=== PATIENT | female | born 1990 | race Caucasian/White ===

== ENCOUNTER 2018-07-10 18:51 | Emergency (ER) | payer MEDICAID, OTHER ==
[~2018-07-10] VITALS: Ht 167.6 cm; Wt 133.7 kg
[~2018-07-10 18:51] MED LIST: IBUP-1984 PO; NORE1PAT7 TP
[2018-07-10 18:55] VITALS: BP 146/90
[2018-07-10 19:41] LABS: BASOPHILS % (AUTO) 0.3 % (0-1); EOSINOPHILS # (AUTO) 0.3 X10'3 (0-0.9); EOSINOPHILS % (AUTO) 2.7 % (0-6); HEMATOCRIT 43.1 % (35.0-45.0); HEMOGLOBIN 14.4 g/dl (12.0-16.0); LYMPHOCYTES # (AUTO) 2.7 X10'3 (1.1-4.8); LYMPHOCYTES % (AUTO) 24.5 % (21-51); MEAN CORPUSCULAR HEMOGLOBIN 29.2 PG (27.0-31.0); MEAN CORPUSCULAR HGB CONC 33.4 % (33.0-36.5); MEAN CORPUSCULAR VOLUME 87.5 FL (78-98); MEAN PLATELET VOLUME 9.2 FL (7.4-10.4); MONOCYTES # (AUTO) 0.5 X10'3 (0-0.9); MONOCYTES % (AUTO) 4.4 % (2-12); NEUTROPHILS # (AUTO) 7.5 X10'3 (1.8-7.7); NEUTROPHILS % (AUTO) 68.1 % (42-75); PLATELET COUNT 306 X10'3 (140-440); RED BLOOD COUNT 4.92 X10'6 (4.20-5.60); RED CELL DISTRIBUTION WIDTH 15.6 % (11.5-14.5); WHITE BLOOD COUNT 11.1 X10'3 (4.5-11.0)
[2018-07-10 19:50] LABS: PARTIAL THROMBOPLASTIN TIME 30 SECONDS (22-32)
[2018-07-10 19:51] LABS: ALANINE AMINOTRANSFERASE 35 U/L (12-78); ALBUMIN 3.5 G/DL (3.4-5.0); ALBUMIN/GLOBULIN RATIO 0.8 (1.1-1.5); ALKALINE PHOSPHATASE 106 IU/L (46-116); ANION GAP 10 (8-16); ASPARTATE AMINO TRANSFERASE 20 U/L (10-37); BILIRUBIN,TOTAL 0.3 MG/DL (0.1-1.0); BLOOD UREA NITROGEN 13 MG/DL (7-18); BUN/CREATININE RATIO 15.1 (6.6-38.0); CALCIUM 8.7 MG/DL (8.5-10.1); CHLORIDE 103 MMOL/L (99-107); CREATININE 0.86 MG/DL (0.40-0.90); GLUCOSE 145 MG/DL (70-104); MAGNESIUM 1.9 MG/DL (1.5-2.4); POTASSIUM 3.9 MMOL/L (3.5-5.1); SODIUM 139 MMOL/L (135-145); TOTAL CARBON DIOXIDE 25.8 MMOL/L (24-32); TOTAL PROTEIN 7.9 G/DL (6.4-8.2); eGFR 79 ML/MIN
[2018-07-10 20:01] LABS: HCG SERUM QL NEGATIVE
[2018-07-10 21:16] LABS: URINE HCG NEGATIVE (NEG)
[2018-07-10 21:29] LABS: CLARITY,URINE CLEAR (Clear); COLOR,URINE YELLOW (Yellow); GLUCOSE, URINE NEGATIVE (Neg); KETONES,URINE NEGATIVE (Neg); LEUKOCYTE ESTERASE ,URINE NEGATIVE (Neg); NITRITES, URINE NEGATIVE (Neg); OCCULT BLOOD,URINE NEGATIVE (Neg); PH,URINE 5.5 (4.8-8.0); PROTEIN,URINE NEGATIVE (Neg); UROBILINOGEN,URINE 0.2 E.U/dL (0.2-1.0)
[2018-07-10 21:35] LABS: UA COLLECTION TYPE CLN CATCH MIDSTREAM
[2018-07-10] MEDS ORDERED: ipratropium/albuterol 3ml nebule NEB STA (21:59)
[2018-07-10] MEDS ORDERED: methylPREDNISolone sod succ 125mg/2ml vial IM ONE (22:00)
[2018-07-10] MEDS ORDERED: CefTRIAXone 1000mg IM Kit (w/lidocaine diluent) IM ONE (22:00)
[2018-07-11] MEDS ORDERED: ALBU8HFA INH (00:04)
[2018-07-11] MEDS ORDERED: AZIT-63 PO (00:04)
[2018-07-11] MEDS ORDERED: PRED20TA PO (00:04)
== END 2018-07-11 00:28 | disposition home or self-care (01) ==
LOC: ER 18:51
DX: J40 Bronchitis, not specified as acute or chronic (principal); E11.9 Type 2 diabetes mellitus without complications; F17.200 Nicotine dependence, unspecified, uncomplicated; Z98.890 Other specified postprocedural states; Z88.5 Allergy status to narcotic agent; Z79.899 Other long term (current) drug therapy
CPT/HCPCS: 36415; 71046; 80053; 81003; 81025; 83605; 83735; 84145; 84703; 85025; 85610; 85730; 87040; 93005; 94640; 94760; 96372; 99285; J0696; J2930

== ENCOUNTER 2018-09-19 09:28 | Outpatient (CLI) | payer OTHER ==
[~2018-09-19 09:28] MED LIST changes: +ALBU8HFA INH; +PRED20TA PO
[2018-09-19 09:58] LABS: BASOPHILS % (AUTO) 0.3 % (0-1); EOSINOPHILS # (AUTO) 0.2 X10'3 (0-0.9); EOSINOPHILS % (AUTO) 2.7 % (0-6); HEMATOCRIT 41.7 % (35.0-45.0); LYMPHOCYTES # (AUTO) 2.1 X10'3 (1.1-4.8); LYMPHOCYTES % (AUTO) 25.7 % (21-51); MEAN CORPUSCULAR HEMOGLOBIN 29.7 PG (27.0-31.0); MEAN CORPUSCULAR HGB CONC 33.5 % (33.0-36.5); MEAN CORPUSCULAR VOLUME 88.7 FL (78-98); MEAN PLATELET VOLUME 9.3 FL (7.4-10.4); MONOCYTES # (AUTO) 0.4 X10'3 (0-0.9); NEUTROPHILS # (AUTO) 5.4 X10'3 (1.8-7.7); NEUTROPHILS % (AUTO) 66.3 % (42-75); PLATELET COUNT 264 X10'3 (140-440); RED BLOOD COUNT 4.71 X10'6 (4.20-5.60); RED CELL DISTRIBUTION WIDTH 14.9 % (11.5-14.5); WHITE BLOOD COUNT 8.1 X10'3 (4.5-11.0)
[2018-09-19 10:25] LABS: ALANINE AMINOTRANSFERASE 33 U/L (12-78); ALBUMIN 3.4 G/DL (3.4-5.0); ANION GAP 8 (8-16); ASPARTATE AMINO TRANSFERASE 16 U/L (10-37); BLOOD UREA NITROGEN 11 MG/DL (7-18); BUN/CREATININE RATIO 14.7 (6.6-38.0); CALCIUM 8.9 MG/DL (8.5-10.1); CHLORIDE 104 MMOL/L (99-107); CREATININE 0.75 MG/DL (0.40-0.90); GLUCOSE 97 MG/DL (70-104); POTASSIUM 4.1 MMOL/L (3.5-5.1); SODIUM 138 MMOL/L (135-145); TOTAL CARBON DIOXIDE 25.6 MMOL/L (24-32); eGFR > 90 ML/MIN
[2018-09-19 10:52] LABS: ALBUMIN/GLOBULIN RATIO 0.9 (1.1-1.5); ALKALINE PHOSPHATASE 105 IU/L (46-116); BILIRUBIN,TOTAL 0.3 MG/DL (0.1-1.0); TOTAL PROTEIN 7.2 G/DL (6.4-8.2)
[2018-09-20 09:30] LABS: ESTRADIOL 30.8 pg/mL (.); FSH, SERUM 6.7 mIU/mL (.); INSULIN 16.3 uIU/mL (2.6-24.9); LUTEINIZING HORMONE 3.3 mIU/mL (.); PROLACTIN 7.6 ng/mL (4.8-23.3); THYROID PEROXIDASE AB 9 IU/mL (0-34)
[2018-09-21 08:56] LABS: TESTOSTERONE, FREE, DIRECT 2.8 pg/mL (0.0-4.2)
[2018-09-21 13:24] LABS: ESTRONE, SERUM 39 pg/mL (.)
== END 2018-09-19 23:59 | disposition home or self-care (01) ==
LOC: LAB 09:28
PROVIDERS: ATTEND Obstetrics & Gynecology
DX: E28.2 Polycystic ovarian syndrome (principal); F17.200 Nicotine dependence, unspecified, uncomplicated
CPT/HCPCS: 36415; 80053; 82670; 82679; 83001; 83002; 83036; 83525; 84146; 84402; 84403; 84439; 84443; 85025; 86376

== ENCOUNTER 2018-10-14 16:48 | Emergency (ER) | payer OTHER ==
[~2018-10-14] VITALS: Ht 168.9 cm; Wt 133.8 kg
[2018-10-14 17:10] VITALS: BP 130/63
[2018-10-14] MEDS ORDERED: PENI250T2 PO (17:37)
== END 2018-10-14 17:48 | disposition home or self-care (01) ==
LOC: ER 16:49
DX: K02.9 Dental caries, unspecified (principal); R22.0 Localized swelling, mass and lump, head; E11.9 Type 2 diabetes mellitus without complications; Z98.890 Other specified postprocedural states; Z88.5 Allergy status to narcotic agent; Z79.899 Other long term (current) drug therapy
CPT/HCPCS: 99283

== ENCOUNTER 2020-09-18 09:04 | Emergency (ER) | payer BC, OTHER ==
[~2020-09-18] VITALS: Ht 167.6 cm; Wt 129.6 kg
[2020-09-18 09:23] VITALS: BP 151/97
[2020-09-18] MEDS ORDERED: AMOX-422 PO (11:40)
[2020-09-18] MEDS ORDERED: ALBU8HFA PO (11:40)
[2020-09-18] MEDS ORDERED: PRED20TA PO (11:44)
== END 2020-09-18 11:54 | disposition home or self-care (01) ==
LOC: ER 09:05
DX: U07.1 COVID-19 (principal); J20.8 Acute bronchitis due to other specified organisms; G43.909 Migraine, unspecified, not intractable, without status migrainosus; E11.9 Type 2 diabetes mellitus without complications; F17.200 Nicotine dependence, unspecified, uncomplicated; Z98.891 History of uterine scar from previous surgery; Z88.8 Allergy status to other drugs, medicaments and biological substances; Z79.2 Long term (current) use of antibiotics; Z79.899 Other long term (current) drug therapy
CPT/HCPCS: 36415; 71045; 87635; 99284